=== PATIENT | male | born 1965 | race African-American/Black ===

== ENCOUNTER 2024-09-23 15:43 | Emergency (ER) | payer MEDICAID ==
[~2024-09-23] VITALS: Ht 177.8 cm; Wt 160.0 kg
[2024-09-23 15:46] VITALS: TEMP 98.8
[2024-09-23] MEDS ORDERED: SUMA25TA15 PO (15:49)
[2024-09-23 16:20] LABS: BASOPHILS % (AUTO) 0.5 % (0.0-2.0); EOSINOPHILS % (AUTO) 0.9 % (1.0-6.0); HEMATOCRIT 42.8 % (41-53); HEMOGLOBIN 14.2 g/dL (13.5-17.5); LYMPHOCYTES % (AUTO) 29.9 % (22.0-44.0); MEAN CORPUSCULAR HEMOGLOBIN 29.1 pg (26.0-34.0); MEAN CORPUSCULAR HGB CONC 33.2 G/dL (31.0-37.0); MEAN CORPUSCULAR VOLUME 88 fL (80-100); MONOCYTES # (AUTO) 0.6 K/uL (0.1-1.0); MONOCYTES % (AUTO) 8.5 % (2.0-9.0); NEUTROPHILS % (AUTO) 60.2 % (40.0-70.0); PLATELET COUNT (AUTO) 300 K/uL (150-450); RED BLOOD CELL COUNT(AUTO) 4.88 MIL/uL (4.50-5.90); RED CELL DISTRIBUTION WIDTH 14.3 % (11.5-14.5); WHITE BLOOD COUNT (AUTO) 6.7 K/uL (4.5-11.0)
[2024-09-23 16:31] LABS: ANION GAP 7 mmol/L (8-16); CALCIUM, TOTAL 9.5 mg/dL (8.8-10.5); CARBON DIOXIDE 30 mmol/L (22-29); CHLORIDE 97 mmol/L (98-107); CREATININE 0.96 mg/dL (0.60-1.30); GLOMERULAR FILTR. RATE CALC > 60 mL/min (>60); GLUCOSE,RANDOM 87 mg/dL (70-110); POTASSIUM 4.2 mmol/L (3.5-5.1); SODIUM SERUM 134 mmol/L (136-145); UREA NITROGEN, BLOOD 15 mg/dL (7-18)
[2024-09-23 16:40] LABS: TROPONIN I-HIGH SENSITIVITY 5 ng/L (<76)
[2024-09-23 16:54] LABS: B-TYPE NATRIURETIC PEPTIDE < 5 pg/mL (0-100)
[2024-09-23 17:49] LABS: COVID AG,FIA SOURCE NASAL SWAB
[2024-09-23 18:09] LABS: SARS-COV2 (COVID) ANTIGEN,FIA Negative (Negative)
[2024-09-23 18:11] LABS: INFLUENZA TYPE A NEGATIVE FOR TYPE A (NEGATIVE); INFLUENZA TYPE B POSITIVE FOR TYPE B (NEGATIVE)
[2024-09-23] MEDS: DEXAMETHASONE 4 MG TABLET PO ONE (18:41)
[2024-09-23 18:53] VITALS: PULSE 111; RESP 18; O2SAT 95
[2024-09-23] MEDS: IPRATROPIUM BROMIDE 0.5 MG/2.5 ML NEB SOLUTION NEB ONE (18:53)
[2024-09-23] MEDS: ALBUTEROL SULFATE 2.5 MG/0.5 ML NEB SOLUTION NEB ONE (18:53)
[2024-09-23 19:08] VITALS: PULSE 113; RESP 18; O2SAT 98
[2024-09-23] MEDS ORDERED: ONDA-104 PO (19:42)
[2024-09-23] MEDS: IBUPROFEN 400 MG TABLET PO ONE (19:57)
[2024-09-23] MEDS: ONDANSETRON 4 MG TABLET PO ONE (19:57)
[2024-09-23 20:08] VITALS: BP 121/77; PULSE 106; RESP 18; O2SAT 98
== END 2024-09-23 20:10 | disposition home or self-care (01) ==
LOC: EMS 15:43
DX: J10.1 Influenza due to other identified influenza virus with other respiratory manifestations (principal); F17.210 Nicotine dependence, cigarettes, uncomplicated; Z90.49 Acquired absence of other specified parts of digestive tract; Z20.822 Contact with and (suspected) exposure to COVID-19
CPT/HCPCS: 99285; 71045; 87426; 80048; 83880; 84484; 85025; 87804; 36415; 94640; 93005; J8540; Q0162; J7613

== ENCOUNTER 2024-09-29 21:45 | Emergency (ER) | payer MEDICAID ==
[~2024-09-29] VITALS: Ht 177.8 cm; Wt 84.1 kg
[~2024-09-29 21:45] MED LIST: ONDA-104 PO; SUMA25TA15 PO
[2024-09-29 22:24] VITALS: TEMP 98.4
[2024-09-30 00:22] LABS: COVID AG,FIA SOURCE NASAL SWAB
[2024-09-30 00:25] VITALS: BP 120/74
[2024-09-30 00:27] LABS: BASOPHILS % (AUTO) 0.3 % (0.0-2.0); EOSINOPHILS % (AUTO) 2.4 % (1.0-6.0); HEMATOCRIT 30.3 % (41-53); HEMOGLOBIN 10.4 g/dL (13.5-17.5); LYMPHOCYTES # (AUTO) 1.9 K/uL (1.0-4.8); LYMPHOCYTES % (AUTO) 30.7 % (22.0-44.0); MEAN CORPUSCULAR HEMOGLOBIN 31.4 pg (26.0-34.0); MEAN CORPUSCULAR HGB CONC 34.4 G/dL (31.0-37.0); MEAN CORPUSCULAR VOLUME 91 fL (80-100); MONOCYTES # (AUTO) 0.6 K/uL (0.1-1.0); MONOCYTES % (AUTO) 8.8 % (2.0-9.0); NEUTROPHILS # (AUTO) 3.7 K/uL (1.8-7.7); NEUTROPHILS % (AUTO) 57.8 % (40.0-70.0); PLATELET COUNT (AUTO) 445 K/uL (150-450); RED BLOOD CELL COUNT(AUTO) 3.32 MIL/uL (4.50-5.90); WHITE BLOOD COUNT (AUTO) 6.4 K/uL (4.5-11.0)
[2024-09-30 00:34] LABS: ANION GAP 5 mmol/L (8-16); CALCIUM, TOTAL 8.6 mg/dL (8.8-10.5); CARBON DIOXIDE 31 mmol/L (22-29); CHLORIDE 103 mmol/L (98-107); CREATININE 0.74 mg/dL (0.60-1.30); GLOMERULAR FILTR. RATE CALC > 60 mL/min (>60); GLUCOSE,RANDOM 93 mg/dL (70-110); POTASSIUM 3.5 mmol/L (3.5-5.1); SODIUM SERUM 139 mmol/L (136-145); UREA NITROGEN, BLOOD 13 mg/dL (7-18)
[2024-09-30 00:42] LABS: APPEARANCE,URINE CLEAR (CLEAR); BILIRUBIN,URINE NEGATIVE (NEGATIVE); COLOR,URINE YELLOW (YELLOW); GLUCOSE, URINE (UA) 70-100 mg/dL (NEGATIVE); KETONES,URINE NEGATIVE (NEGATIVE); LEUKOCYTE ESTERASE ,URINE NEGATIVE (NEGATIVE); NITRATE,URINE NEGATIVE (NEGATIVE); OCCULT BLOOD,URINE NEGATIVE (NEGATIVE); PH,URINE 5.5 (5.0-8.0); PROTEIN,URINE NEGATIVE (NEGATIVE); SPECIFIC GRAVITIY, URINE 1.021 (1.003-1.030)
[2024-09-30 00:43] LABS: TROPONIN I-HIGH SENSITIVITY 5 ng/L (<76)
[2024-09-30 01:04] LABS: BACTERIA,URINE None Seen /HPF (None Seen); RBC,URINE None Seen /HPF (0-2); SQUAMOUS EPITHELIAL CELL,UR Few /LPF (None Seen); WBC,URINE None Seen /HPF (0-5)
[2024-09-30 01:23] LABS: INFLUENZA TYPE A NEGATIVE FOR TYPE A (NEGATIVE); INFLUENZA TYPE B NEGATIVE FOR TYPE B (NEGATIVE); SARS-COV2 (COVID) ANTIGEN,FIA Negative (Negative)
[2024-09-30] MEDS: GuaiFENesin/D-METHORPHAN/PHENYLEPH 5 ML LIQUID ORAL.SYG PO ONE (01:25)
[2024-09-30] MEDS: IBUPROFEN 400 MG TABLET PO ONE (01:25)
[2024-09-30 02:40] VITALS: PULSE 86; RESP 20; O2SAT 98
[2024-09-30] MEDS: IPRATROPIUM BROMIDE 0.5 MG/2.5 ML NEB SOLUTION NEB ONE (02:40)
[2024-09-30] MEDS: ALBUTEROL SULFATE 2.5 MG/0.5 ML NEB SOLUTION NEB ONE (02:40)
[2024-09-30 02:55] VITALS: PULSE 86; RESP 20; O2SAT 100
[2024-09-30] MEDS: DOXYCYCLINE HYCLATE 100 MG TABLET PO ONE (03:26)
[2024-09-30] MEDS: AMOX TR/POT CLAV 875 MG/125 MG TABLET PO ONE (03:26)
[2024-09-30] MEDS ORDERED: AMOX-457 PO (03:39)
[2024-09-30] MEDS ORDERED: BENZ-227 PO (03:39)
[2024-09-30] MEDS ORDERED: BUDE10.27 IH (03:39)
[2024-09-30] MEDS ORDERED: DOXY-354 PO (03:39)
== END 2024-09-30 04:05 | disposition home or self-care (01) ==
LOC: EMS 21:45
DX: J18.9 Pneumonia, unspecified organism (principal); R05.9 Cough, unspecified; F17.210 Nicotine dependence, cigarettes, uncomplicated; Z90.49 Acquired absence of other specified parts of digestive tract; Z20.822 Contact with and (suspected) exposure to COVID-19
CPT/HCPCS: 71045; 80048; 81001; 81003; 84484; 85025; 87804; 93005; 94640; 99285; 36415-L1; 36415-TC; J7613